=== PATIENT | male | born 1975 | race Caucasian/White ===

== ENCOUNTER → 2021-05-11 | Outpatient (CLI) | payer SELFPAY ==
--- NOTE | 2021-05-11 10:46 | US ---
EXAMINATION TYPE: US abdomen limited DATE OF EXAM: 05/11/2021 COMPARISON: NONE CLINICAL HISTORY: 45-year-old male R10.33 Periumbilical pain. TECHNIQUE: Multiple sonographic images targeted along the right lower quadrant anterior abdominal are a of patient's pain. FINDINGS: Water Attendant notes: Right lower abdomen scanned in area of patients pain. No obvious hernia seen. Images show no solid or cystic lesion. IMPRESSION: Targeted scanning of the superficial tissues along the right lower quadrant, which corresponds to the site of patient's pain, shows no discrete abdominal wall hernia or other solid or cystic lesion.
== END | disposition home or self-care (01) ==
LOC: RADUSWWP 07:25
PROVIDERS: ATTEND Family Medicine
DX: R10.33 Periumbilical pain (principal)
CPT/HCPCS: 76705